=== PATIENT | male | born 1960 | race Caucasian/White ===

== ENCOUNTER 2016-09-11 20:12 | Emergency (ER) | payer BC ==
[2016-09-11 20:27] VITALS: BP 132/87; PULSE 88; TEMP 98.1; BMI 25.1
--- NOTE | 2016-09-11 20:32 | PDOC ---
History of Present Illness - General Chief Complaint: Pain, Acute Stated Complaint: TESTICULAR PAIN Time Seen by Provider: 09/11/16 20:19 History Source: Patient Exam Limitations: No Limitations - History of Present Illness Initial Comments: 09/11/16 20:28 55 Y NO PMHX PTE C/O LT TESTICULAR PAIN FOR 2 DAYS. NO TRAUMA. NO FEVER, NO D/ C. 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 IN ED, IN NAD. AMBULATORY W/ NORMAL GAIT. TAKING TESTOSTERONE SUPPLEMENTS. Past History - Past Medical History Allergies/Adverse Reactions: Allergies Allergy/AdvReac Type Severity Reaction Status Date / Time No Known Allergies Allergy Verified 07/07/16 20:51 Home Medications: Ambulatory Orders Ibuprofen [Motrin -] 400 mg PO DAILY 09/11/16 - Immunization History Td Vaccination: No TDAP Vaccination: No Immunization Up to Date: No (HAD FLU SHOT) - Psycho/Social/Smoking Cessation Hx Anxiety: No Suicidal Ideation: No Smoking Status: No Smoking History: Never smoked Have you smoked in the past 12 months: No Number of Cigarettes Smoked Daily: 0 Hx Alcohol Use: No Drug/Substance Use Hx: No Substance Use Type: None Review of Systems - Review of Systems Able to Perform ROS?: Yes Is the patient limited Armenian proficient: No Constitutional: No: Symptoms Reported HEENTM: No: Symptoms Reported Respiratory: No: Symptoms reported Cardiac (ROS): No: Symptoms Reported ABD/GI: No: Symptoms Reported : Yes: Symptoms Reported, See HPI, Pain, Testicular Pain. No: Burning, Dysuria, Discharge, Frequency, Flank Pain, Hematuria, Incontinence, Testicular Mass, Testicular Swelling, Lesions Musculoskeletal: Yes: Symptoms Reported, See HPI, Back Pain Integumentary: Yes: Symptoms Reported, Bruising (EASY BRUISING) Neurological: No: Symptoms reported *Physical Exam - Vital Signs Last Vital Signs Temp Pulse Resp BP Pulse Ox 98.1 F 88 16 132/87 95 09/11/16 20:15 09/11/16 20:15 09/11/16 20:15 09/11/16 20:15 09/11/16 20:15 - Physical Exam General Appearance: Yes: Nourished, Appropriately Dressed. No: Apparent Distress HEENT: positive: Normal ENT Inspection Neck: positive: Supple. negative: Tender Respiratory/Chest: negative: Respiratory Distress Cardiovascular: positive: Regular Rhythm, Regular Rate Gastrointestinal/Abdominal: positive: Soft. negative: Tender Male Genitalia: positive: normal genitalia, testicular tenderness (LEFT), other (SMALL LEFT TESTICLE). negative: discharge, testicular mass, epididymus tender , inguinal hernia, CVAT Integumentary: positive: Normal Color, Bruising (ECCHYMOSIS ON BACK OF KNEE AND RT ARM 2/2 TRAUMA) Neurologic: positive: Fully Oriented, Alert, Normal Mood/Affect, Normal Response , Motor Strength 5/5 ED Treatment Course - RADIOLOGY Radiology Studies Ordered: Category Date Time Status SCROTUM AND CONTENTS US [US] Stat Ultrasound 09/11/16 20:26 Ordered Progress Note - Progress Note Progress Note: US SHOWING ONLY B/L HYDROCELES (L>R) WILL D/C HOME HAS FOLLOW UP ON WEDNESDAY FOR EVALUATION OF EASY BRUISING *DC/Admit/Observation/Transfer Diagnosis at time of Disposition: Pain in left testicle - Discharge Dispostion Disposition: HOME Condition at time of disposition: Stable - Referrals Referrals: Yas Moses MD [Primary Care Provider] - Call tomorrow - Patient Instructions Additional Instructions: TYLENOL FOR PAIN RETURN IF FEVER, VOMITING, SEVERE PAIN SEE YOUR DOCTOR NET WEEK PLANNED
[2016-09-11 20:50] LABS: PH,URINE 5.5 (4.5-8); URINE APPEARANCE Clear; URINE BILIRUBIN 1+ (NEGATIVE); URINE GLUCOSE (UA) Negative (NEGATIVE); URINE KETONE Trace (NEGATIVE); URINE LEUK ESTERASE Negative (NEGATIVE); URINE NITRITE Negative (NEGATIVE); URINE PROTEIN Negative (NEGATIVE); URINE UROBILINOGEN 0.2 E.U/dl (0.2-1.0)
[2016-09-11 20:51] LABS: URINE BLOOD 1+ (NEGATIVE); URINE COLOR YELLOW
[2016-09-11 21:36] LABS: CALCIUM OXALATE CRYSTALS FEW /hpf (NONE SEEN); URINE BACTERIA FEW /hpf (NEGATIVE); URINE WBC 0-2 (3-5)
== END 2016-09-11 21:34 | disposition home or self-care (01) ==
LOC: FER 20:12
DX: N50.812 Left testicular pain (principal); Z87.898 Personal history of other specified conditions
CPT/HCPCS: 76870-TC; 81003; 81015; 99281-25